=== PATIENT | male | born 2000 | race Caucasian/White ===

== ENCOUNTER 2023-08-11 00:46 | Emergency (ER) | payer OTHER ==
[~2023-08-11] VITALS: Ht 172.7 cm; Wt 88.6 kg
[2023-08-11 00:50] VITALS: TEMP 98
[2023-08-11] MEDS ORDERED: CEPHALEXIN500 M1 PO (02:44)
[2023-08-11 02:50] VITALS: BP 129/87; PULSE 93
== END 2023-08-11 02:50 | disposition home or self-care (01) ==
LOC: COL.ER 00:46
DX: S61.216A Laceration without foreign body of right little finger without damage to nail, initial encounter (principal); Z23 Encounter for immunization; W26.0XXA Contact with knife, initial encounter